=== PATIENT | male | born 1930 | race African-American/Black ===

== ENCOUNTER 2021-03-03 15:07 | Emergency (ER) | payer MEDICARE ==
[2021-03-03 16:58] LABS: #Eosinphils 0.4 10x3/uL (0.0-0.5); %Basophils 0.4 % (0.0-2.0); %Lymphocytes 17.4 % (18.0-47.0); %Monocytes 11.2 % (0.0-10.0); %Neutrophils 66.4 % (40.0-75.0); Hemoglobin 13.1 g/dL (13.5-17.5); Mean Corpuscular Hemoglobin 31.1 pg (27.0-33.0); Mean Corpuscular Volume 97.1 fl (81.2-95.1); Mean Platelet Volume 12.1 fl (7.4-10.4); Platelet Count 142 10x3/uL (150-450); RBC Distribution Width 14.7 % (11.5-14.5); Red Blood Cell (RBC) Count 4.21 10x6/uL (4.32-5.72)
[2021-03-03 17:08] LABS: ALT (SGPT) 38 U/L (8-55); AST (SGOT) 30 U/L (5-34); Albumin 3.5 g/dL (3.4-4.8); Alkaline Phosphatase 144 U/L (40-110); Anion Gap 13 mmol/L (10-20); BUN (Urea Nitrogen) 29 mg/dL (8.4-25.7); Bilirubin, Total 0.5 mg/dL (0.2-1.2); CK (CPK) 93 U/L (30-200); Calc. Creatinine Clearance 0 mL/min (70-130); Calcium 8.3 mg/dL (7.8-10.44); Carbon Dioxide 21 mmol/L (23-31); Chloride 111 mmol/L (98-107); Globulin 3.8 g/dL (2.4-3.5); Glucose 90 mg/dL (83-110); Lipase 45 U/L (8-78); Potassium 4.7 mmol/L (3.5-5.1); Protein, Total 7.3 g/dL (5.8-8.1); Sodium 140 mmol/L (136-145)
== END 2021-03-03 18:40 | disposition home or self-care (01) ==
LOC: CSHERS 15:07
DX: R05 Cough (principal); R79.1 Abnormal coagulation profile; I12.0 Hypertensive chronic kidney disease with stage 5 chronic kidney disease or end stage renal disease; N18.6 End stage renal disease; Z86.711 Personal history of pulmonary embolism; Z79.899 Other long term (current) drug therapy
CPT/HCPCS: 71045; 71275; 80053; 82550; 83690; 83880; 84484; 85025; 85379; 93005